=== PATIENT | female | born 2000 | race Two or more races ===

== ENCOUNTER 2024-06-02 00:12 | Emergency (ER) | payer MEDICAID, SELFPAY ==
[2024-06-02 00:12] VITALS: BMI 30.9
[2024-06-02 01:03] VITALS: BP 139/81; PULSE 88; RESP 18; TEMP 36.6; O2SAT 97
--- NOTE | 2024-06-02 01:14 | XR_ITS ---
Examination: PA lateral chest 2 views Technique: Upright PA lateral chest 2 views Exam date and time: June 02, 2024 0125 hrs. Comparison July 18, 2023 Indications: Chest pain beginning 3 days ago. Findings: Normal heart size. Lungs are clear. The osseous structures are intact Impression: No active disease
--- NOTE | 2024-06-02 01:14 | EKG_ITS ---
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
--- NOTE | 2024-06-02 01:14 | PD.EDRME ---
Rapid Medical Screening Exam RME Arrival date/time: 06/02/24 00:12 Chief Complaint: Flu Like Symptoms Time Seen by Provider: 06/02/24 00:44 Vital signs: Vital Signs Temperature 97.9 F 06/02/24 01:03 Pulse Rate 88 06/02/24 01:03 Respiratory Rate 18 06/02/24 01:03 Blood Pressure 139/81 H 06/02/24 01:03 Pulse Oximetry (%) 97 06/02/24 01:03 Oxygen Delivery Method Room Air 06/02/24 01:03 Vital signs reviewed by provider: Yes RME Narrative: 23-year-old female presents with chest pain x 3 days. She describes it as constant, sharp, pressure in the middle of her chest. She endorses shortness of breath and dry cough. She notes intermittent nausea without emesis. Denies leg pain, leg swelling, headache, diarrhea. Denies known sick contacts and recent travel. Denies OCP use.
[2024-06-02 01:47] LABS: B-Type Natriuretic Peptide < 20 pg/mL (0-100)
[2024-06-02 01:48] LABS: Basophils % (Auto) 0 % (0-2.5); Eosinophils # (Auto) 0.2 Thou/mm3 (0.0-0.5); Eosinophils % (Auto) 2 % (0-10); Hematocrit 37.5 % (36.0-46.0); Hemoglobin 12.1 g/dL (12.0-16.0); Immature Granulocytes % (Auto) 0 % (0-0); Immature Granulocytes Auto 0.05 Thou/mm3 (0.00-0.00); Lymphocytes # (Auto) 2.5 Thou/mm3 (1.0-4.8); Lymphocytes % (Auto) 22 % (10-50); Mean Corpuscular HGB Conc 32.3 g/dl (31.0-37.0); Mean Corpuscular Hemoglobin 28.9 pg (25.0-35.0); Mean Corpuscular Volume 90 fL (80-100); Monocytes # (Auto) 0.9 Thou/mm3 (0.0-0.8); Monocytes % (Auto) 8 % (0-12); Neutrophils # (Auto) 7.6 Thou/mm3 (1.8-7.7); Neutrophils % (Auto) 68 % (37-80); Nucleated Red Blood Cell % 0 /100 WBC (0); Platelet Count 291 Thou/mm3 (140-440); RDW Standard Deviation 42.3 fL (36.4-46.3); Red Blood Count 4.18 Miln/mm3 (4.00-5.20); White Blood Count 11.2 Thou/mm3 (3.6-11.0)
[2024-06-02 01:50] LABS: Alanine Aminotransferase 12 U/L (10-49); Albumin, Serum 4.8 gm/dL (3.5-5.0); Albumin/Globulin Ratio 1.7 (1.2-2.2); Alkaline Phosphatase 92 U/L (46-116); Anion Gap 6 (7-16); Aspartate Amino Transferase 16 U/L (0-34); BUN/Creatinine Ratio 13 Ratio (12-20); Bilirubin,Total 0.2 mg/dL (0.3-1.2); Blood Urea Nitrogen 10 mg/dL (9-23); Calcium 10.4 mg/dL (8.3-10.6); Calcium (Corrected) 10.4 mg/dL (8.5-10.1); Carbon Dioxide 26.8 mMol/L (20.0-31.0); Chloride 105 mMol/L (98-107); Creatinine (Component) 0.8 mg/dL (0.6-1.3); Globulin 2.9 gm/dL (2.3-3.5); Glucose 130 mg/dL (74-106); Magnesium 1.9 mg/dL (1.6-2.6); Osmolality,Calculated 276 (275-295); Potassium 4.1 mMol/L (3.4-5.1); Sodium 138 mMol/L (136-145); Total Protein 7.7 gm/dL (5.7-8.2); Troponin I < 0.002 ng/mL (0.0-0.045); eGFR > 60 See Note
[2024-06-02 01:53] LABS: Collection Type, Urine Clean Catch
[2024-06-02 01:59] LABS: Bacteria,Urine Rare; Bilirubin,Urine Negative (Negative); Blood,Urine Negative (Negative); Clarity,Urine Clear (Clear/Hazy); Color,Urine Lt-Yellow (Lt Yel-Yel); Glucose, Urine Negative (Negative); Ketones,Urine Negative (Negative); Leukocyte Esterase,Urine Negative (Negative); Nitrite,Urine Negative (Negative); Protein,Urine Negative (Neg - Trace); RBC,Urine 4 /hpf (0-3); Specific Gravity,Urine 1.024 (1.001-1.035); Squamous Epithelial Cell,Urine 4 /hpf (0-5); Urobilinogen,Urine Negative mg/dL (0.0-1.0); WBC,Urine 4 /hpf (0-5)
[2024-06-02 02:00] LABS: INR 0.9 (0.9-1.3); Partial Thromboplastin Time 26.5 Seconds (22.0-36.0); Prothrombin Time 10.2 Seconds (9.0-12.2)
[2024-06-02 02:05] LABS: Amphetamine/Methamp Scrn,U Negative (Negative); Barbiturate Screen,Urine Negative (Negative); Benzodiazepines Screen,Urine Negative (Negative); Benzoylecgonine Screen, Ur Negative (Negative); Fentanyl Screen,Urine Negative (Negative); Opiate Screen,Urine Negative (Negative); THC Screen,Urine Negative (Negative)
--- NOTE | 2024-08-05 17:15 | EDNOTE_ITS ---
ED Chest Pain RME/HPI General Chief Complaint: Flu Like Symptoms Stated Complaint: CHEST PAIN, COUGHING Time Seen by Provider: 06/02/24 00:44 Arrival date/time: 06/02/24 00:12 Limitations: no limitations RME / HPI RME / HPI narrative: This is an addendum for the pt visit dated 06/02/24: 23-year-old female presents with chest pain x 3 days. She describes it as constant, sharp, pressure in the middle of her chest. She endorses shortness of breath and dry cough. She notes intermittent nausea without emesis. Denies leg pain, leg swelling, headache, diarrhea. Denies known sick contacts and recent travel. Denies OCP use. MD complaint: chest pain Related Data On Oral Contraceptives: No Home Medications ?Medication ?Instructions ?Recorded ?Confirmed levothyroxine 25 mcg tablet 25 mcg PO QDAY 02/04/22 02/04/22 Previous Rx's ?Medication ?Instructions ?Recorded cyclobenzaprine 5 mg tablet 5 mg PO TID PRN muscle spasm #15 02/04/22 tabs ibuprofen 600 mg tablet 600 mg PO Q6H PRN pain #30 tabs 02/04/22 Allergies Allergy/AdvReac Type Severity Reaction Status Date / Time No Known Allergies Allergy Verified 06/02/24 00:14 Review of Systems Constitutional Constitutional: Reports as per HPI and Denies fever(s) Cardiovascular Cardiovascular: Reports chest pain, Reports dyspnea and Reports leg edema Respiratory Respiratory: Reports cough and Reports dyspnea Gastrointestinal Gastrointestinal: Reports as per HPI, Reports nausea and Denies vomiting Past Medical History Past Medical History CARDIAC: Negative Congestive Heart Failure RESPIRATORY: Negative Chronic Obstructive Pulmonary Disease (COPD) GENITOURINARY: Negative Renal Disease ENDOCRINE: Positive Hypothyroidism; Negative Diabetes Mellitus Type 1 or Diabetes Mellitus Type 2 Social History SMOKING STATUS: Never smoker SUBSTANCE USE: does not use ED Exam General Limitations: Present no limitations General appearance: Present alert and in no apparent distress Head Head exam: Present atraumatic and normocephalic Eye Eye exam: Present normal appearance and EOMI Neck Neck exam: Present normal inspection and full ROM Chest Chest inspection: Present normal inspection and symmetric chest wall rise Respiratory Respiratory exam: Present normal lung sounds bilaterally; Absent respiratory distress Cardiovascular Cardiovascular exam: Present regular rate Neurological Exam Neurological exam: Present alert Course Quality Measures none Orders Category Date Time Status Bedside COVID-19 Antigen Test NOW Care 06/02/24 01:14 Completed Bedside Influenza A&B Antigen Test NOW Care 06/02/24 01:14 Completed EKG (ED ONLY) *Do not use* NOW Care 06/02/24 01:14 Completed EKG (ED Only) Stat Exams 06/02/24 01:14 Draft XR chest 2V Stat Exams 06/02/24 01:14 Completed B-Type Natriuretic Peptide Stat Lab 06/02/24 01:16 Completed CBC Stat Lab 06/02/24 01:16 Completed Comprehensive Metabolic Panel Stat Lab 06/02/24 01:16 Completed Drug Screen,Urine Stat Lab 06/02/24 01:40 Completed Magnesium Stat Lab 06/02/24 01:16 Completed Partial Thromboplastin Time Stat Lab 06/02/24 01:16 Completed Prothrombin Time with INR Stat Lab 06/02/24 01:16 Completed Troponin I Stat Lab 06/02/24 01:16 Completed Urinalysis Stat Lab 06/02/24 01:40 Completed Vital Signs Vital signs: Vital Signs Temperature 97.9 F 06/02/24 01:03 Pulse Rate 88 06/02/24 01:03 Respiratory Rate 18 06/02/24 01:03 Blood Pressure 139/81 H 06/02/24 01:03 Pulse Oximetry (%) 97 06/02/24 01:03 Oxygen Delivery Method Room Air 06/02/24 01:03 pulse ox 97% on RA, wnl. Chest Pain MDM Narrative MDM Narrative:: This is an addendum for pt visit 06/02/24: 22-year-old female presented for evaluation of chest pain with dry cough and shortness of breath x 3 days. Vital signs reassuring. Cardiac workup reassuring giving negative troponin and labs with no evidence of endorgan damage or gross electrolyte abnormalities. Chest x-ray showed no pneumothorax, no consolidation, no costochondral blunting. PERC score 0. Ultimately patient was discharged with plan to follow-up with primary care in the next several days for reevaluation. Patient was provided with strict return precautions. Patient data External records reviewed:: [facility] previous records Clinical information provided by:: patient Social determinants that could affect healthcare access:: none Patient has the following chronic illnesses:: none reported. How is presenting disease/condition affected by chronic disease/condition?: no chronic disease Evaluation data The following diagnostics were reviewed and interpreted by me:: lab results, radiology exam(s) and EKG tracing(s) Lab and/or radiology exams considered but not ordered:: considered not ordered. Interpretation Summary: negative troponin. no evidence of end organ damage or gross electrolyte abnormalities. No UTI. Medications / Prescriptions Medications or Prescriptions considered but not ordered:: considered not ordered. Medication administrations:: considered not ordered. Consultations Consultation(s) initiated? (list below): No Diagnosis Chest Pain Differential Diagnosis: fracture of rib, pneumothorax, stable angina, atypical chest pain, st elevation myocardial infarction, costochondritis, chest pain and biliary colic Most likely diagnosis given after review of the tests above:: Atypical chest pain. Admission Indicated Admission indicated?: not indicated Admission Request Was there a request for admission?: No Disposition Plan Disposition Plan: Discharge Discharge Attestation Discharge Attestation: The patient and all family members were given an opportunity to ask questions and understood the discharge instructions. Discharge instructions specifically effects, indications for sooner follow up or return to the emergency department, and the expected course of current diagnosis. Patient condition: Stable Discharge Plan Plan Patient Disposition: HOME (Self Care) Disposition Comment: stable Prescriptions/Referrals Prescriptions/Med Rec: No Action levothyroxine 25 mcg Tablet 25 mcg PO QDAY ibuprofen 600 mg tablet 600 mg PO Q6H PRN (Reason: pain) Qty: 30 0RF cyclobenzaprine 5 mg tablet 5 mg PO TID PRN (Reason: muscle spasm) Qty: 15 0RF Referrals: Jeniffer Zee [employer]IVITIES DIRECTOR SCOUTING [Primary Care Provider] - In 1 week Problem List Clinical Impression: Atypical chest pain Patient/Caregiver Discharge Instructions Other Activity Instructions:: Follow-up with primary care doctor in the next 2 to 3 days for reevaluation. Take ibuprofen or Tylenol as needed for chest discomfort. Return to the ED if your symptoms should worsen or change. Education Materials: ED Chest Pain, Uncertain Cause Print Language: Welsh Stand Alone Forms: Sherly Award Info., Patient Portal Info Letter PA/[place] DEVELOPER Supervising Physician GINNA/VALENTINO Supervising Physician: Dr. Hina MOON Attestation Attestation The patient was seen by the midlevel practitioner. I, the co-signing physician, was present during the entire ER visit. While I did not physically examine the patient, I was available for consultation as needed. I agree with the plan and documentation.
== END 2024-06-02 03:31 | disposition home or self-care (01) ==
PROVIDERS: Physician Assistant; Emergency Provider Emergency Medicine; PCP Registered Nurse Community Health
DX: R07.89 Other chest pain (principal)
CPT/HCPCS: 36415; 71046; 80053; 80307; 81001; 83735; 83880; 84484; 85025; 85610; 85730; 87400; 87811; 93005; 99283